=== PATIENT | female | born 2000 | race African-American/Black ===

== ENCOUNTER → 2021-11-25 | Outpatient (CLI) | payer OTHER ==
[2021-11-25 11:57] LABS: HEMATOCRIT 37.3 % (36.0-47.0); HEMOGLOBIN 12.6 g/dL (12.0-15.5); RED BLOOD COUNT 4.49 x10^6/uL (3.50-5.40); RED CELL DISTRIBUTION WIDTH 14.7 % (11.5-14.5); WHITE BLOOD COUNT 6.2 x10^3/uL (4.0-11.0)
[2021-11-26 23:07] LABS: RUBELLA IGG ANTIBODY 13.4 index (Immune >0.99)
== END ==
LOC: LAB 11:08
PROVIDERS: ATTEND Registered Nurse
DX: Z34.91 Encounter for supervision of normal pregnancy, unspecified, first trimester (principal)
CPT/HCPCS: 36415; 85027; 85660; 86592; 86703; 86762; 86787; 86803; 86850; 86900; 86901; 87340